=== PATIENT | male | born 1995 | race Caucasian/White ===

== ENCOUNTER 2016-11-05 11:17 | Emergency (ER) | payer OTHER ==
[2016-11-05 11:33] VITALS: O2SAT 96
--- NOTE | 2016-11-05 12:13 | EDPHY ---
H & P Time Seen by Provider: 11/05/16 12:09 HPI/ROS: Chief complaint. Left side pain, low energy HPI. 21-year-old male presents with low energy for 2 weeks. He feels it is hard to concentrate and focus for 2-3 weeks. Left side abdominal pain for 3 days. No trauma no vomiting or diarrhea. No fever cough, upper respiratory symptoms, shortness of breath. Occasional headache. Treated for strep throat several weeks ago. Has had mono previously last sprain. ROS Constitutional. no fever/chills, no weakness Eyes. no problems with vision ENT. no sore throat, no nasal drainage Cardiovascular. no chest pain Respiratory. no shortness of breath, no cough Abdominal. Left-sided abdominal pain without vomiting or diarrhea . no problems urinating MS. no calf pain/swelling, no neck/back pain, no joint pain Skin. no rash Lymph. no swollen glands Neuro. Occasional headache. Hard to focus. Past Medical/Surgical History: Attention deficit hyperactivity disorder, mono Social History: Single, nonsmoker no alcohol Smoking Status: Never smoked Physical Exam: General Appearance: Alert well-developed male mild distress vitals are stable Eyes: Pupils equal and round no pallor or injection. ENT, tympanic membranes normal pharynx without injection. Mucous membranes moist Respiratory: There are no retractions, lungs are clear to auscultation. Cardiovascular: Regular rate and rhythm. Gastrointestinal: Abdomen is soft with mild tenderness in the left upper and left lateral quadrants. No masses. Normal bowel sounds Neurological: Awake and alert, sensory and motor exams grossly normal. Skin: Warm and dry, no rashes. Musculoskeletal: Neck is supple nontender. Extremities symmetrical, full range of motion. Psychiatric: Patient is oriented X 3, there is no agitation. Constitutional: Initial Vital Signs Temperature (C) 36.7 C 11/05/16 11:25 Heart Rate 78 11/05/16 11:25 Respiratory Rate 17 11/05/16 11:25 Blood Pressure 131/69 H 11/05/16 11:25 O2 Sat (%) 96 11/05/16 11:25 O2 Delivery Mode Room Air Allergies/Adverse Reactions: avocado Allergy (Verified 11/05/16 11:24) sodium sulfate Allergy (Verified 11/05/16 11:24) Home Medications: Medication Instructions Recorded Sebastien 11/20/15 Medical Decision Making - Diagnostics Imaging: Upright abdomen shows no evidence of free air or air-fluid levels. Consistent with constipation Procedures: IV normal saline with target of 2 L ED Course/Re-evaluation: Re-evaluation at 1:30 p.m. patient is stable. The patient and I discussed imaging and lab results. We discussed treatment plan including criteria for return for further evaluation. They expressed understanding and agreement Differential Diagnosis: I considered viral syndrome, dehydration, electrolyte abnormality - Data Points Laboratory Results: Laboratory Results 11/05/16 11:50 11/05/16 11:50 11/05/16 11/05/16 11:50 11:50 WBC 4.01 10^3/uL 10^3/uL (3.80-9.50) RBC 5.94 10^6/uL 10^6/uL (4.40-6.38) Hgb 17.3 g/dL g/dL (13.7-17.5) Hct 51.1 % H % (40.0-51.0) MCV 86.0 fL fL (81.5-99.8) MCH 29.1 pg pg (27.9-34.1) MCHC 33.9 g/dL g/dL (32.4-36.7) RDW 12.5 % % (11.5-15.2) Plt Count 316 10^3/uL 10^3/uL (150-400) MPV 9.9 fL fL (8.7-11.7) Neut % (Auto) 47.4 % % (39.3-74.2) Lymph % (Auto) 36.7 % % (15.0-45.0) [place] % (Auto) 6.7 % % (4.5-13.0) Eos % (Auto) 7.5 % % (0.6-7.6) Baso % (Auto) 1.7 % % (0.3-1.7) Nucleat RBC Rel Count 0.0 % % (0.0-0.2) Absolute Neuts (auto) 1.90 10^3/uL 10^3/uL (1.70-6.50) Absolute Lymphs (auto) 1.47 10^3/uL 10^3/uL (1.00-3.00) Absolute Monos (auto) 0.27 10^3/uL L 10^3/uL (0.30-0.80) Absolute Eos (auto) 0.30 10^3/uL 10^3/uL (0.03-0.40) Absolute Basos (auto) 0.07 10^3/uL 10^3/uL (0.02-0.10) Absolute Nucleated RBC 0.00 10^3/uL 10^3/uL (0-0.01) Immature Gran % 0.0 % % (0.0-1.1) Immature Gran # 0.00 10^3/uL 10^3/uL (0.00-0.10) Sodium 141 mEq/L mEq/L (134-144) Potassium 4.5 mEq/L mEq/L (3.5-5.2) Chloride 105 mEq/L mEq/L (97-110) Carbon Dioxide 25 mEq/l mEq/l (22-31) Anion Gap 11 mEq/L mEq/L (8-16) BUN 20 mg/dL mg/dL (7-23) Creatinine 0.9 mg/dL mg/dL (0.7-1.3) Estimated GFR > 60 Glucose 83 mg/dL mg/dL (70-100) Calcium 10.1 mg/dL mg/dL (8.5-10.4) Medications Given: Discontinued Medications Sodium Chloride (Ns) 1,000 mls @ 0 mls/hr IV ONCE ONE PRN Reason: Wide Open Stop: 11/05/16 12:22 Last Admin: 11/05/16 12:24 Dose: 1,000 mls Sodium Chloride (Ns) 1,000 mls @ 0 mls/hr IV ONCE ONE PRN Reason: Wide Open Stop: 11/05/16 12:22 Last Admin: 11/05/16 13:04 Dose: 1,000 mls Departure - Departure Disposition: Home, Routine, Self-Care Clinical Impression: Abdominal pain Qualifiers: Abdominal location: left lower quadrant Qualified Code(s): R10.32 - Left lower quadrant pain Condition: Good Instructions: Constipation (ED), High Fiber Diet (ED) Additional Instructions: Increased fluids. Drink plenty of fruit and prune juice. Magnesium citrate and dewey Colace as well as milk of magnesia from the grocery store to help with constipation. Get plenty of rest. Return for worsening symptoms. Recheck in 2- 3 days if not improved Referrals: NONE *PRIMARY CARE P,. [Primary Care Provider] - As per Instructions [facility] [Outside] - 2-3 days, if not improved Stand Alone Forms: School Excuse
[2016-11-05] MEDS ORDERED: NS 1,000 ML IV ONE ×2 (12:21)
[2016-11-05 12:35] LABS: ADD DIFF? NO; ADD MORPH? NO; ADD SCAN? NO; ATYPICAL LYMPHOCYTE FLAG 0 (0-99); FRAGMENT RBC FLAG 0 (0-99); HEMATOCRIT 51.1 % (40.0-51.0); HEMOGLOBIN 17.3 g/dL (13.7-17.5); LEFT SHIFT FLG 0 (0-99); LIPEMIA HEMOLYSIS FLAG 90 (0-99); MEAN CELL HEMOGLOBIN 29.1 pg (27.9-34.1); MEAN CELL HEMOGLOBIN CONCENTR. 33.9 g/dL (32.4-36.7); MEAN PLATELET VOLUME 9.9 fL (8.7-11.7); PLATELET CLUMPS FLAG 0 (0-99); PLATELET COUNT 316 10^3/uL (150-400); RED BLOOD CELL COUNT 5.94 10^6/uL (4.40-6.38); RED CELL DISTRIBUTION WIDTH 12.5 % (11.5-15.2)
[2016-11-05 12:41] LABS: ANION GAP 11 mEq/L (8-16); CALCIUM 10.1 mg/dL (8.5-10.4); CARBON DIOXIDE 25 mEq/l (22-31); CHLORIDE 105 mEq/L (97-110); CREATININE 0.9 mg/dL (0.7-1.3); GLOMERULAR FILTRATION RATE > 60; GLUCOSE 83 mg/dL (70-100); POTASSIUM 4.5 mEq/L (3.5-5.2); SODIUM 141 mEq/L (134-144)
[2016-11-05 13:54] VITALS: BP 116/85; PULSE 63; RESP 18; TEMP 98.6
== END 2016-11-05 13:54 | disposition home or self-care (01) ==
DX: R10.32 Left lower quadrant pain (principal)

== ENCOUNTER 2017-06-14 17:06 | Emergency (ER) | payer OTHER ==
[2017-06-14 17:12] VITALS: O2SAT 98
[2017-06-14] MEDS ORDERED: ACETAMINOPHEN 325 MG TAB PO ONE (17:20)
--- NOTE | 2017-06-14 17:35 | EDPHY ---
H & P Stated Complaint: tuesday hit head on hard ceiling/no loc or neck pain/has had lewis and nause Time Seen by Provider: 06/14/17 17:16 HPI/ROS: CHIEF COMPLAINT: head injury HISTORY OF PRESENT ILLNESS: 22-year-old male presents emergency department complaining of a headache, mild nausea irritable, concentrating. Patient reports hitting the top of his head when he jumped and hit a door frame 36 hours ago. No loss of consciousness, he remembers the entire incident. Patient reports feeling nauseous immediately. He went to bed in the next morning continue with nausea, irritability, difficulty focusing. Patient denies forceful vomiting confusion, difficulty walking. He states this feels like a previous concussion that he had several years ago. He denies neck pain. Patient's headache is a 3/10, he has not taken any medication for this. Pain is located at the top of his head where he struck his head. REVIEW OF SYSTEMS: A comprehensive 10 point review of systems is otherwise negative aside from elements mentioned in the history of present illness. Source: Patient Exam Limitations: No limitations - Personal History Current Tetanus/Diphtheria Vaccine: Unsure - Medical/Surgical History Hx Asthma: No Hx Chronic Respiratory Disease: No Hx Diabetes: No Hx Cardiac Disease: No Hx Renal Disease: No Hx Cirrhosis: No Hx Alcoholism: No Hx Splenectomy or Spleen Trauma: No Other PMH: MONO 05/04 - Social History Smoking Status: Never smoked - Physical Exam Exam: Physical Exam Gen: Alert and Oriented, NAD HEENT: PERRL, moist mucous membranes, no scalp contusion or hematoma NECK: no c-spine tenderness CV: regular rate and regular rhythm PULM: CTAB, no wheezes ABDOMEN: soft, non tender to palpation, BS present BACK: No CVA tenderness NEURO: Neurologically grossly intact, normal cerebellar exam. EXTREMITIES: normal appearing SKIN: no rash or break in skin on exposed skin PSYCH: answers questions appropriately. Constitutional: Initial Vital Signs Temperature (C) 36.5 C 06/14/17 17:09 Heart Rate 68 06/14/17 17:09 Respiratory Rate 06/14/17 17:09 Blood Pressure 121/69 H 06/14/17 17:09 O2 Sat (%) 98 06/14/17 17:09 O2 Delivery Mode Room Air Allergies/Adverse Reactions: avocado Allergy (Verified 06/14/17 17:08) sodium sulfate Allergy (Verified 06/14/17 17:08) Home Medications: Medication Instructions Recorded Adderall 10 MG (*) 06/14/17 Medical Decision Making ED Course/Re-evaluation: This patient presents after a minor head injury with a mild headache, no amnesia or LOC.] Neurologic exam normal. No indication for neuro imaging. [facility] precautions given. Patient was given a dose of Tylenol in the emergency department. Differential Diagnosis: The differential diagnosis for the patient's head injury included but was not limited to concussion, skull fracture, intra-parenchymal contusion, subarachnoid , subdural and epidural hematoma. - Data Points Medications Given: Discontinued Medications Acetaminophen (Tylenol) 650 mg PO EDNOW ONE Stop: 06/14/17 17:21 Last Admin: 06/14/17 17:40 Dose: 650 mg Departure - Departure Disposition: Home, Routine, Self-Care Clinical Impression: Head injury Qualifiers: Encounter type: initial encounter Qualified Code(s): S09.90XA - Unspecified injury of head, initial encounter Concussion Qualifiers: Encounter type: initial encounter Loss of consciousness presence/duration: without LOC Qualified Code(s): S06.0X0A - Concussion without loss of consciousness, initial encounter Condition: Good Instructions: Concussion (ED), Head Injury (ED) Additional Instructions: Take 650 mg of Tylenol every 8 hours as needed for headache. Call Dr. Yost in the morning to schedule an appointment to be seen at 1st available. Do not do any physical activity where you are at risk for a concussion. Return to the emergency department for any forceful vomiting, confusion, difficulty walking, seizure-like activity. Referrals: Tanya Yost MD [Medical Doctor] - As per Instructions (concussion specialist) Stand Alone Forms: Work Limited Duty
[2017-06-14 18:27] VITALS: BP 110/75; PULSE 81; RESP 16; TEMP 98.6
== END 2017-06-14 17:53 | disposition home or self-care (01) ==
DX: S06.0X0A Concussion without loss of consciousness, initial encounter (principal); W22.8XXA Striking against or struck by other objects, initial encounter; Y99.8 Other external cause status; Y93.39 Activity, other involving climbing, rappelling and jumping off

== ENCOUNTER 2018-11-23 22:31 | Emergency (ER) | payer OTHER ==
[2018-11-24] MEDS ORDERED: NS 1,000 ML IV ONE (00:14)
[2018-11-24 00:37] LABS: PLATELET COUNT 223 10^3/uL (150-400)
--- NOTE | 2018-11-24 01:25 | EDPHY ---
H & P Stated Complaint: ST, fatigue, muscle aches, abd pain Time Seen by Provider: 11/24/18 00:07 - Personal History Current Tetanus/Diphtheria Vaccine: Yes - Medical/Surgical History Hx Asthma: No Hx Chronic Respiratory Disease: No Hx Diabetes: No Hx Cardiac Disease: No Hx Renal Disease: No Hx Cirrhosis: No Hx Alcoholism: No Hx Splenectomy or Spleen Trauma: No Other PMH: MONO 05/04, ADD - Social History Smoking Status: Never smoked Constitutional: Initial Vital Signs Temperature (C) 36.5 C 11/23/18 22:33 Heart Rate 88 11/23/18 22:33 Respiratory Rate 16 11/23/18 22:33 Blood Pressure 108/67 11/23/18 22:33 O2 Sat (%) 98 11/23/18 22:33 O2 Delivery Mode Room Air Allergies/Adverse Reactions: avocado Allergy (Verified 11/23/18 22:34) sodium sulfate Allergy (Verified 11/23/18 22:34) Home Medications: Medication Instructions Recorded Adderall 10 MG (*) 06/14/17 Medical Decision Making - Data Points Laboratory Results: Laboratory Results 11/24/18 00:26 11/24/18 00:26 11/24/18 11/24/18 11/24/18 Unknown 00:26 00:26 WBC RBC Hgb Hct MCV MCH MCHC RDW Plt Count MPV Neut % (Auto) Lymph % (Auto) [place] % (Auto) Eos % (Auto) Baso % (Auto) Nucleat RBC Rel Count Absolute Neuts (auto) Absolute Lymphs (auto) Absolute Monos (auto) Absolute Eos (auto) Absolute Basos (auto) Absolute Nucleated RBC Immature Gran % Immature Gran # Sodium 139 mEq/L mEq/L (135-145) Potassium 3.8 mEq/L mEq/L (3.5-5.2) Chloride 106 mEq/L mEq/L (97-110) Carbon Dioxide 24 mEq/l mEq/l (22-31) Anion Gap 9 mEq/L mEq/L (6-14) BUN 20 mg/dL mg/dL (7-23) Creatinine 1.1 mg/dL mg/dL (0.7-1.3) Estimated GFR > 60 Glucose 89 mg/dL mg/dL (70-100) Calcium 9.4 mg/dL mg/dL (8.5-10.4) Total Bilirubin 1.0 mg/dL mg/dL (0.1-1.4) Conjugated Bilirubin 0.4 mg/dL mg/dL (0.0-0.5) Unconjugated Bilirubin 0.6 mg/dL mg/dL (0.0-1.1) AST 28 IU/L IU/L (17-59) ALT 42 IU/L IU/L (21-72) Alkaline Phosphatase 54 IU/L IU/L (38-126) Total Protein 7.4 g/dL g/dL (6.3-8.2) Albumin 4.3 g/dL g/dL (3.5-5.0) Lipase 168 IU/L IU/L (23-300) Monoscreen Group A Strep Screen Group A Strep DNA Pending 11/24/18 11/24/18 11/24/18 00:26 00:26 00:10 WBC 8.72 10^3/uL 10^3/uL (3.80-9.50) RBC 5.29 10^6/uL 10^6/uL (4.40-6.38) Hgb 15.8 g/dL g/dL (13.7-17.5) Hct 45.4 % % (40.0-51.0) MCV 85.8 fL fL (81.5-99.8) MCH 29.9 pg pg (27.9-34.1) MCHC 34.8 g/dL g/dL (32.4-36.7) RDW 12.2 % % (11.5-15.2) Plt Count 223 10^3/uL 10^3/uL (150-400) MPV 9.5 fL fL (8.7-11.7) Neut % (Auto) 80.3 % H % (39.3-74.2) Lymph % (Auto) 11.0 % L % (15.0-45.0) [place] % (Auto) 5.7 % % (4.5-13.0) Eos % (Auto) 2.3 % % (0.6-7.6) Baso % (Auto) 0.5 % % (0.3-1.7) Nucleat RBC Rel Count 0.0 % % (0.0-0.2) Absolute Neuts (auto) 7.00 10^3/uL H 10^3/uL (1.70-6.50) Absolute Lymphs (auto) 0.96 10^3/uL L 10^3/uL (1.00-3.00) Absolute Monos (auto) 0.50 10^3/uL 10^3/uL (0.30-0.80) Absolute Eos (auto) 0.20 10^3/uL 10^3/uL (0.03-0.40) Absolute Basos (auto) 0.04 10^3/uL 10^3/uL (0.02-0.10) Absolute Nucleated RBC 0.00 10^3/uL 10^3/uL (0-0.01) Immature Gran % 0.2 % % (0.0-1.1) Immature Gran # 0.02 10^3/uL 10^3/uL (0.00-0.10) Sodium Potassium Chloride Carbon Dioxide Anion Gap BUN Creatinine Estimated GFR Glucose Calcium Total Bilirubin Conjugated Bilirubin Unconjugated Bilirubin AST ALT Alkaline Phosphatase Total Protein Albumin Lipase Monoscreen NEGATIVE (NEGATIVE) Group A Strep Screen NEGATIVE (NEGATIVE) Group A Strep DNA Medications Given: Discontinued Medications Sodium Chloride (Ns) 1,000 mls @ 0 mls/hr IV EDNOW ONE; Wide Open PRN Reason: Protocol Stop: 11/24/18 00:15 Last Admin: 11/24/18 00:26 Dose: 1,000 mls Departure - Departure Disposition: Home, Routine, Self-Care Clinical Impression: Viral syndrome Condition: Good Instructions: Viral Syndrome (ED) Additional Instructions: Follow-up with a primary care doctor in the next 1-2 days for recheck Get plenty of rest and drink plenty of fluids to stay hydrated If symptoms worsen or new symptoms develop return to the emergency room for recheck Referrals: NONE *PRIMARY CARE P,. [Primary Care Provider] - As per Instructions Carlos Chao MD [Medical Doctor] - As per Instructions
[2018-11-24 01:35] VITALS: BP 114/60
== END 2018-11-24 01:34 | disposition home or self-care (01) ==
DX: B34.9 Viral infection, unspecified (principal); E86.9 Volume depletion, unspecified